=== PATIENT | female | born 1960 | race Caucasian/White ===

== ENCOUNTER → 2017-07-31 | Day surgery (SDC) | payer OTHER ==
[~2017-07-31] MED LIST: ACETAMINOPHEN 1000 MG/100 ML 100 ML IV ONE; BALANCED SALT SOLN OPHT IRRIG 15 ML BTL ONE; BUPIVACAINE/EPINEPHRINE 0.25% 50 ML VIAL ONE; HYDR-3533 PO; LACTATED RINGER'S 1000 ML INJ 1,000 ML ONE; LIDOCAINE 1%/EPINEPHrine 1:100,000 SOLN 30 ML VIAL ONE; LIDOCAINE 2%/EPINEPHrine PF 1:200,000 20ML SDV ONE; MIDAZOLAM HCL 2 MG/2 ML VIAL ONE; NORC7.5T PO; ONDANSETRON HCL 4 MG/2 ML VIAL IV PUSH ONE; PROPOFOL 200 MG/20 ML AMP IV ONE; ceFAZolin INJ 1,000 MG VIAL ONE
--- NOTE | 2017-07-31 10:51 | TN ---
cc: Jacob Boyer MD DATE OF SURGERY: 07/31/2017 PREOPERATIVE DIAGNOSIS: Facial aging. POSTOPERATIVE DIAGNOSIS: Facial aging. PROCEDURE: 1. Cervicofacial rhytidectomy. 2. Also underwent application of one syringe of Voluma in the nasolabial folds and marionette lines. SURGEON: Jacob Boyer MD, FACS CHIEF TECHNICIAN: Alysia Pollard MS-[id number] COMPLICATIONS: None. DRAINS: None. PROCEDURE IN DETAIL: She was properly consented, marked, properly anesthetized. The skin sterilized with Microcyn and sterile draping applied. Local anesthetic was infiltrated 2% to the incision and some tumescent fluid to the rest of the face and neck for a total of approximately 180 mL in which 1:1, 30 mL of 1% Lidocaine with epinephrine was mixed. At this point, I applied the one syringe of Voluma in the nasolabial fold and marionette lines without any difficulties. Utilizing the pre and postauricular incision, a 15 blade incision was carried out elevating the cervicofacial flap proximal to the nasolabial fold and down to the base of the neck. With this, I proceeded and plicated the SMAS superiorly and the platysma mass laterally. The was applied at this point after appropriately dissecting on the contralateral side as previously described and excision of the loose skin was removed posteriorly and anteriorly. The closure was done in the postauricular area utilizing 3-0 Monocryl sutures and surgical ruel and the preauricular 5-0 Monocryl suture and 5-0 fast-absorbing gut. Compression were applied. Good viability of tissue was noted at the end of the case. The patient was awakened and extubated in the operating room, transferred back to the post-anesthesia care unit in stable condition. There were no complications appreciated. The patient tolerated the procedure well. MD LARRY Verma/PHILIP/ricco , 10:01 AM , 10:29 AM
== END | disposition home or self-care (01) ==
LOC: ESDC 06:14
PROVIDERS: ATTEND Plastic Surgery
DX: Z41.1 Encounter for cosmetic surgery (principal)
CPT/HCPCS: 00300; 11950; 15828; J0131; J0690; J2250; J2405; J3010; J7120